=== PATIENT | female | born 1935 | race Caucasian/White ===

== ENCOUNTER → 2019-02-10 | Outpatient (CLI) | payer MEDICARE ==
[~2019-02-10] MED LIST: LIDOCAINE HCL 1% LOCAL INJ 20 ML VIAL ONE
--- NOTE | 2019-02-10 10:49 | Diagnostic Imaging Report ---
Exam: Biopsy of a right parotid mass. History: Palpable right parotid mass x3-4 months. Comparison: Outside CT neck from golf closed diagnostic dated 01/15/2019 Findings: Informed consent was obtained. Formal timeout was accomplished. Sterile preparation of the right neck below the level of the ear was obtained. Full barrier technique was utilized. Utilizing ultrasound guidance a total of 6 FNAs were accomplished with 25-gauge needles to sample the hypoechoic 1.7 cm parotid mass. Specimens were deemed diagnostic by the Pathologist. Patient tolerated the procedure well. Impression: Successful ultrasound-guided fine-needle aspiration of a right parotid mass. Signed by: Dr. Melchor Cervantes DO on 02/10/2019 10:46 AM
== END ==
LOC: US 07:29
PROVIDERS: ATTEND Otolaryngology
DX: R22.1 Localized swelling, mass and lump, neck (principal)
CPT/HCPCS: 10005; 88172; 88173; 88305; J2001